=== PATIENT | male | born 1990 | race Caucasian/White ===

== ENCOUNTER 2018-04-19 10:16 | Inpatient (IN) | payer BC ==
[~2018-04-19] VITALS: Ht 170.2 cm; Wt 75.3 kg
[2018-04-19 10:17] VITALS: BP 137/88
[2018-04-19 10:55] VITALS: BP 126/81
[2018-04-19 11:01] LABS: ABSOLUTE NEUTROPHILS 2.8 thou/uL (1.4-8.2); BASOPHILS 0.5 % (0.0-2.0); HEMATOCRIT 46.8 % (42.0-52.0); LYMPHOCYTES 32.7 % (24.0-44.0); MCH 29.1 pg (26.0-34.0); MCHC 34.1 g/dL (28.0-37.0); MCV 85.5 fL (80.0-100.0); MONOCYTES 7.3 % (1.0-8.0); PLATELET COUNT 211 thou/uL (150-400); POLYS 57.5 % (36.0-66.0); RBC 5.47 mil/uL (4.50-6.00)
[2018-04-19 11:08] LABS: CALCIUM 9.1 mg/dL (8.5-10.1); POTASSIUM 4.1 mmol/L (3.5-5.1)
[2018-04-19 11:11] LABS: URINE BILIRUBIN NEGATIVE (Negative); URINE BLOOD NEGATIVE (Negative); URINE CLARITY CLEAR; URINE COLOR YELLOW; URINE GLUCOSE-RANDOM* NEGATIVE (Negative); URINE KETONES NEGATIVE (Negative); URINE LEUKOCYTES-REFLEX NEGATIVE (Negative); URINE NITRITE-REFLEX NEGATIVE (Negative); URINE PROTEIN (DIPSTICK) NEGATIVE (Negative); URINE SPECIFIC GRAVITY >= 1.030 (1.005-1.035); URINE UROBILINOGEN 0.2 E.U./dl (0.2-1.0)
[2018-04-19 11:14] LABS: ALBUMIN 3.8 g/dL (3.4-5.0); TOTAL BILIRUBIN 0.3 mg/dL (<0.1-1.0); TOTAL PROTEIN 7.9 g/dL (6.4-8.2)
[2018-04-19 12:23] VITALS: BP 143/83
[2018-04-19 12:30] VITALS: BP 146/94
--- NOTE | 2018-04-19 14:30 | NUR ---
PT ADMITTED TO ROOM 418. PT ALERT XS 4. IV ABT AND FLUIDS ORDERED. VS AND HGT AND WEIGHT ORDERED SEE CHART. PT PLEASANT WITH CARE.
[2018-04-19 20:14] VITALS: BP 146/94
--- NOTE | 2018-04-19 22:54 | NUR ---
PT IS ALERT AND PLEASANT. UP AD VANDANA. DENIES PAIN. VOIDING OKAY. AFEBRILE. IVF INFUSING.SCDS IN PLACE.PLAN FOR SURGERY TOMORROW.
[2018-04-20 04:18] VITALS: BP 123/73
--- NOTE | 2018-04-20 04:58 | NUR ---
PT AOX4. ON RA. DENIES SOA. DENIES PAIN. NPO AFTER MIDNIGHT FOR APPENDECTOMY IN THE AM. IV FLUIDS INFUSING. NO COMPLAINS PRESENTLY. WILL CONTINUE TO MONITOR.
[2018-04-20 05:28] LABS: ABSOLUTE NEUTROPHILS 2.8 thou/uL (1.4-8.2); BASOPHILS 0.5 % (0.0-2.0); EOSINOPHILS 2.1 % (0.0-3.0); HEMATOCRIT 44.4 % (42.0-52.0); HEMOGLOBIN 15.1 gm/dL (14.0-18.0); LYMPHOCYTES 39.6 % (24.0-44.0); MCH 29.1 pg (26.0-34.0); MCV 85.6 fL (80.0-100.0); MONOCYTES 10.9 % (1.0-8.0); PLATELET COUNT 209 thou/uL (150-400); POLYS 46.9 % (36.0-66.0); RBC 5.18 mil/uL (4.50-6.00); RDW 12.6 % (10.5-14.5)
[2018-04-20 05:43] LABS: CALCIUM 8.9 mg/dL (8.5-10.1); CREATININE 1.1 mg/dL (0.7-1.3); MAGNESIUM 1.9 mg/dL (1.8-2.4)
[2018-04-20 07:15] VITALS: BP 126/88
--- NOTE | 2018-04-20 11:20 | NUR ---
ASSESSMENT-PT LIVES AT HOME ALONE BUT HAS HIS PARENTS HERE THAT CAN ASSIST NEEDED. PT INDEPENDENT OF ADLS AND AMBULATION PRIOR TO ADMISSION. PT VOICES NO DC NEEDS AT THIS TIME. FOLLOWING TO ASSIST WITH DC PLANNING. NO DC NEEDS ANTICIPATED.
[2018-04-20] MEDS ORDERED: SENNA-S TABLET1 EACH PO (15:43)
[2018-04-20] MEDS ORDERED: NORCO 5-325 TA1 EACH PO (15:43)
[2018-04-20 16:15] VITALS: BP 135/77
--- NOTE | 2018-04-20 19:48 | NUR ---
PT ASSESSED AT START OF SHIFT. DENIED ABD PAIN. LEFT FOR SURGERY AT 1100 AND RETURNED AT 1545. PT WAS ALERT AND IN NO PAIN. ABD W/ THREE LAP SITES W/ DERMABOND. HAD EATEN SOLID FOOD W/O NAUSEA. VOIDING WELL. UP AD VANDANA IN ROOM. DR. QUINTEROS CALLED TO CHECK IF PT WAS DOING OK FOR DISCHARGE TONIGHT AND HE WOULD DISCHARGE HIM. FATHER AT BEDSIDE TO TAKE PT HOME.
[2018-04-20 20:09] VITALS: BP 133/73
[2018-04-20 20:14] VITALS: BP 133/73
--- NOTE | 2018-04-21 00:01 | O ---
[facility] [place] [address] [place] [address] OPERATIVE REPORT Name: MAXIMUS BISWAS Room #: 418-P [facility] IN M.R.#: [id number] Admission: 04/19/18 Attend Phys: Chirag Bates MD Discharge: 04/20/18 Date of : 86 Report #: [id number] THIS REPORT FOR: //name// CC: Chirag Bates [facility] physician/PCP DATE OF SERVICE: 04/20/2018 SURGEON: Boogie Romero MD DONOR RELATIONS MANAGER: None. PREOPERATIVE DIAGNOSIS: Early acute appendicitis. POSTOPERATIVE DIAGNOSIS: Acute nonsuppurative, nonperforated appendicitis. PROCEDURE: Laparoscopic appendectomy. ANESTHESIA: General endotracheal anesthesia and local anesthetic. ESTIMATED BLOOD LOSS: 5 mL. SPECIMEN: Appendix. COMPLICATIONS: None appreciated. INDICATIONS FOR PROCEDURE: This is a 27-year-old otherwise healthy male patient who has had difficulty with intermittent right lower quadrant abdominal pain twice in the recent past. These episodes occurred just before as well as on 04/14. The patient had symptoms of epigastric abdominal pain localizing to his right lower quadrant. He denies nausea, vomiting, fever or chills. He underwent a CT of the abdomen and pelvis showing changes consistent with early acute appendicitis. The patient presents now for laparoscopic appendectomy. OPERATIVE FINDINGS: Upon entrance in the abdominal cavity, there was no free fluid or pus seen within the abdomen. There was no evidence for abscess or perforation. The appendix itself, although retrocecal, was easily identified. The base of the appendix was uninvolved with inflammation. The distal two-thirds of the appendix showed thickening and hypervascularity. No other significant intra-abdominal pathology was seen. There was no evidence for a Meckel's diverticulum. The staple line did require the addition of Hemoclips to ensure hemostasis. At the conclusion of the operation, sponge, needle, and instrument counts were correct. DESCRIPTION OF PROCEDURE IN DETAIL: After the risks, benefits and expectations [facility] [address] [place] [address] OPERATIVE REPORT Name: MAXIMUS BISWAS Room #: 418-P DIS IN ..#: [id number] Admission: 04/19/18 Attend Phys: Chirag Bates MD Discharge: 04/20/18 Date of : 86 Report #: [id number] of the operation were discussed in detail with the patient, informed consent was obtained. The patient was identified in the preoperative holding area. He was given IV antibiotics as documented in the chart in line with SCIP metrics. The patient was then taken to the operating room and he was placed in the supine position. SCDs were placed on the patient's bilateral lower extremities and pneumatic compression was initiated. The patient was then given IV sedation and he was intubated without incident. His abdomen was prepped and draped in the standard sterile fashion. A time-out was performed to identify the correct patient and procedure. Local anesthetic was infiltrated into the skin and subcutaneous tissue infraumbilically where a curvilinear incision was made with a #15 blade scalpel. Dissection was carried down to the fascia. Between two David clamps, the fascia was incised and an 12 mm Visiport was placed intraperitoneally with a 0-degree angled laparoscope. Pneumoperitoneum was achieved with insufflation of carbon dioxide to 15 mmHg. A 30-degree angled laparoscope was then inserted. The patient was placed in the Trendelenburg position, slightly rotated to his left. The 5 mm ports were placed in the suprapubic and left lower quadrant areas after local anesthetic was infiltrated into the skin and subcutaneous tissue and appropriately sized incisions were made. Operative findings are as noted above. The appendix was easily identified. The small bowel was run back at least 2 feet and there was no evidence for Meckel's diverticulum. The base of the appendix was isolated. A window was made in the mesoappendix and a blue load endoscopic 45 mm ERIC stapler was used to staple and divide the appendix at its base. The mesoappendix was then divided with the ultrasonic dissector with good hemostasis. The appendix and mesoappendix were then placed in an Endopouch and removed through the infraumbilical port site. The abdominal cavity was reentered. The staple line was secured, but there was a small amount of oozing. Hemoclips were placed with good hemostasis. No other significant findings were present. The 12 mm port site was closed with an 0 PDS suture using the Bi-Fede laparoscopic fascial closure device. The abdominal cavity was then desufflated and the remaining ports were removed. Interrupted subcuticular 4-0 Monocryl sutures and Dermabond were used to close the skin incisions. The patient tolerated the procedure well. He was awakened, extubated, and taken to the recovery room in stable condition with no apparent intraoperative complications. <ELECTRONICALLY SIGNED> By: Boogie Romero MD, FACS 04/21/18 [id number] Boogie Romero MD, FACS /nt
== END 2018-04-20 20:32 | disposition home or self-care (01) | DRG 343 ==
LOC: ER 10:16 → EROBS 12:14 → 4E 12:14
PROVIDERS: Nurse Practitioner; Physician Assistant; ADMIT Hospitalist
PROC: 0DTJ4ZZ Resection of Appendix, Percutaneous Endoscopic Approach (ICD-10-PCS; principal; 2018-04-20)
DX: K35.80 Unspecified acute appendicitis (principal)
CPT/HCPCS: 10084; 50010; 50101; 50249; 50411; 50555; 50558; 50739; 50740; 50962; 51975; 52265; 53307; 54022; 54118; 56526; 56527; 62110; 62900; 70005

== ENCOUNTER 2020-07-20 20:57 | Emergency (ER) | payer BC ==
[~2020-07-20] VITALS: Ht 170.2 cm; Wt 74.8 kg
[~2020-07-20 20:57] MED LIST: NORCO 5-325 TA1 EACH PO; SENNA-S TABLET1 EACH PO
[2020-07-20 20:59] VITALS: BP 138/100
[2020-07-20] MEDS ORDERED: BENADRYL25 MG PO (21:04)
[2020-07-20] MEDS ORDERED: MEDROLDOSEPACK PO (21:04)
[2020-07-20] MEDS ORDERED: CENTANY30 GM TOP (21:33)
[2020-07-20] MEDS ORDERED: HYDROXYZINE HCL25 M2 PO (21:33)
[2020-07-20] MEDS ORDERED: MOMETASONE FURO45 G1 TOP (21:33)
== END 2020-07-20 21:49 | disposition home or self-care (01) ==
LOC: ER 20:57
DX: L25.9 Unspecified contact dermatitis, unspecified cause (principal); Z90.49 Acquired absence of other specified parts of digestive tract; Z79.899 Other long term (current) drug therapy